=== PATIENT | female | born 1990 | race Caucasian/White ===

== ENCOUNTER 2016-07-18 15:38 | Inpatient (IN) ==
[2016-07-18] MEDS ORDERED: DINOPROSTONE VAG GEL 10 MG SYRINGE VAG ONE ×2 (16:05→16:13)
[2016-07-18] MEDS ORDERED: ONDANSETRON 4 MG/2 ML VIAL IV PRN (16:08)
[2016-07-18] MEDS: LACTATED RINGERS 1,000 ML IV SCH ×2 (16:40→23:11)
[2016-07-18 16:44] LABS: Basophils % 0.1 % (0.0-0.8); Eosinophils % 0.1 % (0.00-10.9); Hematocrit 38.2 VOL% (35.7-47.0); Immature Granulocytes % 0.3 %; Immature Granulocytes Absolute 0.03 #; Lymphocytes # 1.8 10*3/uL (1.4-4.0); Lymphocytes % 19.8 % (21.3-54.2); Mean Corpuscular Hemoglobin 29 PG (27-34); Mean Corpuscular Volume 86.2 FL (87-102); Monocytes # 0.5 10*3/uL (0.11-0.8); Neutrophils # 6.5 10*3/uL (1.4-7.4); Neutrophils % 73.7 % (38.7-73.9); Platelet Count 123 T/CUMM (130-400); Red Blood Count 4.43 MC/CUMM (3.8-5.5); Red Cell Distribution Width 13.4 % (9.3-17.3); White Blood Count 8.9 T/CUMM (4-12)
[2016-07-18 17:10] LABS: Albumin 2.9 G/DL (3.4-5.0); Bilirubin,Total 0.4 MG/DL (0.2-1.0); Calcium 8.3 MG/DL (8.5-10.1); Osmolality,Calculated 275.4 MOS/KG (273-304); Potassium 4.3 MMOL/L (3.5-5.1); Total Protein 6.2 G/DL (6.4-8.3)
--- NOTE | 2016-07-18 17:58 | OB/GYN History & Physical ---
History of Present Illness Chief complaint: In for elective induction of labor. History of present illness: Ms. Figueroa is a 26 year old female Home Medications Medication Instructions Recorded Confirmed Type Vits #90/Iron Fum/FA 1 each PO DAILY 07/18/16 07/18/16 History [ Formula Tablet] Allergies Allergy/AdvReac Type Severity Reaction Status Date / Time No Known Allergies Allergy Verified 07/18/16 16:06 12 point system: reviewed and no additional remarkable complaints except as stated Medical,Surgical,& Family Hx - Medical History Medical History: noncontributory Psychological: History of: Anxiety Disorders, Depression Reproductive: History of: Abnormal Pap Smear (LEEP) No history of: Ectopic , Complication - Surgical History Thoracic Surgeries: Patient denies;: Organ Transplant Abdominal Surgeries: Surgical HX of: Appendectomy Patient denies: Abdominal Surgery Reproductive Surgeries: Patient denies;: Section - Social History Smoking Status: Former smoker Frequency of Alcohol Use: None Type of Drug Use: None Marital Status: Single Lives With:: Significant Other Functional capacity: independent ambulation 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 General appearance: no acute distress - Antepartum / Post Antepartum Exam Cervix - Dilatation: 1 CM Effacement: 50% Station: -2 Rupture: INTACT Presentation: VTX Heart Rate: 140S Breast: bilateral: normal Abdomen obstetrics: Present: bowel sounds normal Vulva: bilateral: normal Vagina: Present: normal moisture Uterus exam: Present: enlarged Anus/Rectum: Present: normal perianal skin - Respiratory Respiratory exam: Present: clear to auscultation bilaterally - Cardiovascular Cardiovascular exam: Present: regular rate and rhythm - GI/Abdominal GI/Abdominal exam: Present: normal bowel sounds, soft - Extremities Exam Extremities exam: Present: normal inspection - Neurological Exam Neurological exam: Present: alert, oriented X3 - Psychiatric Psychiatric exam: Present: normal affect, normal mood - Skin Skin exam: Present: normal color, warm Assessment and Plan (1) Term Status: Acute Assessment and plan: Admit IV fluids Prostin gel per protocol IV Pitocin per protocol if indicated Artificial rupture membranes when appropriate Epidural anesthesia if desired Internal monitors if indicated Anticipate Current Visit: Yes Results - Labs CBC & BMP: 07/18/16 16:35 07/18/16 16:35 Quality Measures - VTE Contraindication to Pharmacological VTE Prophylaxis: Continuous Epidural Infusion
[2016-07-18] MEDS ORDERED: CITRIC ACID/SODIUM CITRATE 30 ML UDCUP PO ONE (18:54)
[2016-07-18] MEDS ORDERED: PROMETHAZINE 25 MG/1 ML VIAL IM ONE (18:54)
[2016-07-18] MEDS ORDERED: LACTATED RINGERS 1,000 ML IV ONE (18:54)
[2016-07-18] MEDS ORDERED: ePHEDrine 50 MG/ML AMP IV PRN ×2 (18:54)
[2016-07-18] MEDS ORDERED: hydrOXYzine HCL 25 MG/1 ML VIAL IM PRN (18:54)
[2016-07-18] MEDS ORDERED: FAMOTIDINE 20 MG/2 ML VIAL IV ONE (18:54)
[2016-07-18] MEDS ORDERED: diphenhydrAMINE 50 MG/1 ML VIAL IV PRN ×2 (18:54)
[2016-07-18] MEDS ORDERED: fentaNYL 2 MCG/ROPIV 0.2% EPID 150 ML EPIDURAL SCH (18:54)
[2016-07-18 21:00] LABS: Apearance,Urine CLEAR (Clear); Bilirubin,Urine Negative (Negative); Blood, Urine Negative (Negative); Glucose,Urine (UA) Negative (Negative); Ketones,Urine 20 mg/dL (Negative); Mucus,Urine Occasional /LPF (Occasional); Nitrite,Urine Negative (Negative); Protein,Urine Negative; RBC,Urine <1 /HPF (0-4); Squamous Epithelial Cell,Urine Occasional /HPF (0-10); Urine Color Yellow (Yellow); Urine Specific Gravity 1.012 (1.001-1.035); Urine Urobilinogen < 2.0 EU/DL (0.2-1.0); WBC,Urine 1 /HPF (0-6)
[2016-07-19] MEDS ORDERED: OXYTOCIN/LR 20 UNIT/1,000 ML BAG IV ONE ×2 (01:57→12:03)
[2016-07-19] MEDS ORDERED: OXYTOCIN/LR 20 UNIT/1,000 ML BAG IV SCH (02:00)
[2016-07-19] MEDS: LACTATED RINGERS 1,000 ML IV SCH (06:49)
[2016-07-19] MEDS ORDERED: LIDOCAINE 1% 50 ML VIAL ONE (08:46)
[2016-07-19] MEDS ORDERED: miSOPROStol 200 MCG TABLET ONE (08:46)
[2016-07-19 09:47] LABS: Cord Venous Blood HCO3 21.3 MMOL/L; Cord Venous Blood PCO2 46.3 MMHG
--- NOTE | 2016-07-19 10:02 | Event Note ---
HPI: Ms. Figueroa presented to the labor department for elective induction of labor due to term . The risk and benefits were thoroughly discussed with this patient and significant other, plan of care was discussed with Dr. Brambila and all parties were in agreement with plan. Stage I: The patient was admitted and received Prostin gel per protocol. She progressed in labor throughout the night with a CAT 1 tracing. She was started on IV Pitocin per protocol in the morning of 07/19/2016. She experienced spontaneous rupture membranes with clear fluid noted. The patient had an uneventful course of labor. She did receive an epidural for pain control. Stage II: The patient was complete and complained of pressure and desire to push. She pushed for approximately 10 minutes after which time the 's head was delivered. A nuchal cord 2 was noted and reduced. The mouth and nose were suctioned on the perineum. The remainder the infant was delivered at 859. A viable male infant was noted. Apgars were 9 at 1 minute and 9 at 5 minutes. weight was 7 pounds and 4 ounces. A cord pH was obtained and sent to the lab. The infant was placed on the mom's abdomen for skin to skin bonding. Stage III: Spontaneous delivery of a Solis placenta with a three-vessel cord noted. Placenta was further examined appeared to be grossly intact. Vagina cervix was inspected with a second-degree midline laceration noted. The laceration was repaired in the usual fashion. Epidural anesthesia remain in effect during repair. Estimated blood loss was approximately 150 cc. At the time of dictation mother and baby are both in stable condition
--- NOTE | 2016-07-19 11:55 | Anesthesia Post-Op ---
Anesthesia Post OP - Post Ansesthetic Evaluation Patient seen in post op: Yes Resp: within normal limits CV: within normal limits Mental: within normal limits Temp: within normal limits [id number]: within normal limits Nausea and Vomiting: within normal limits Pain: within normal limits
[2016-07-19] MEDS: IBUPROFEN 800 MG TABLET PO PRN ×2 (12:25→23:45)
[2016-07-19] MEDS ORDERED: BENZOCAINE 20%/MENTHOL 0.5% SPRAY 56 GM CAN TOP PRN (20:00)
[2016-07-20] MEDS ORDERED: MAGNESIUM HYDROXIDE SUSP 30 ML UDCUP PO PRN (04:05)
[2016-07-20 06:57] LABS: Basophils % 0.1 % (0.0-0.8); Eosinophils % 0.4 % (0.00-10.9); Hematocrit 36.6 VOL% (35.7-47.0); Hemoglobin 12.7 GM/DL (12.0-16.0); Immature Granulocytes % 0.6 %; Immature Granulocytes Absolute 0.06 #; Lymphocytes # 2.3 10*3/uL (1.4-4.0); Mean Corpuscular HGB Conc 34.7 GM/DL (32-36); Mean Corpuscular Hemoglobin 30 PG (27-34); Mean Corpuscular Volume 86.5 FL (87-102); Mean Platelet Volume 10.9 FL (9.6-12.0); Monocytes # 0.6 10*3/uL (0.11-0.8); Monocytes % 5.3 % (1.7-12.7); Neutrophils # 7.8 10*3/uL (1.4-7.4); Neutrophils % 72.6 % (38.7-73.9); Platelet Count 109 T/CUMM (130-400); Red Blood Count 4.23 MC/CUMM (3.8-5.5); Red Cell Distribution Width 13.5 % (9.3-17.3); White Blood Count 10.7 T/CUMM (4-12)
[2016-07-20] MEDS: IBUPROFEN 800 MG TABLET PO PRN ×2 (07:40→15:40)
[2016-07-20] MEDS: DOCUSATE SODIUM 100 MG CAPSULE PO SCH ×2 (09:06→21:09)
--- NOTE | 2016-07-20 10:14 | OB/GYN Progress Note ---
Assessment and Plan (1) Term Status: Acute Assessment and plan: Admit IV fluids Prostin gel per protocol IV Pitocin per protocol if indicated Artificial rupture membranes when appropriate Epidural anesthesia if desired Internal monitors if indicated Anticipate Current Visit: Yes (2) Vaginal delivery Status: Acute Assessment and plan: Initiate routine orders. Current Visit: Yes [employer] - PN: Subj Interval history: Stable with no complaints. Bonding well with infant Exam [employer] - Constitutional Vitals: Vital Signs Temp Pulse Resp BP Pulse Ox 07/20/16 08:00 97.7 F 72 18 129/85 07/20/16 05:59 16 07/20/16 04:00 97 F L 69 16 97/58 100 07/20/16 02:00 17 07/20/16 00:00 97.4 F L 50 L 18 112/48 100 07/19/16 20:00 97.8 F 75 18 141/72 100 07/19/16 18:00 20 07/19/16 15:55 97.4 F L 70 18 122/68 98 07/19/16 15:54 20 07/19/16 14:30 97.8 F 66 18 129/70 97 07/19/16 14:00 20 07/19/16 13:30 74 18 115/68 99 07/19/16 12:30 77 18 125/81 99 07/19/16 12:00 68 18 105/73 99 07/19/16 11:30 97.1 F L 74 18 129/87 99 General appearance: no acute distress - Antepartum / Post Post Exam Breast: bilateral: normal Abdomen obstetrics: Present: bowel sounds normal Vagina: Present: normal moisture, discharge (Light lochia room) Uterus exam: Present: enlarged (Fundus firm and midline) Anus/Rectum: Present: normal perianal skin - Respiratory Respiratory exam: Present: clear to auscultation bilaterally - Cardiovascular Cardiovascular exam: Present: regular rate and rhythm - GI/Abdominal GI/Abdominal exam: Present: normal bowel sounds, soft - Extremities Exam Extremities exam: Present: normal inspection - Neurological Exam Neurological exam: Present: alert, oriented X3 - Psychiatric Psychiatric exam: Present: normal affect, normal mood - Skin Skin exam: Present: normal color, warm Results - Labs CBC & BMP: 07/20/16 06:52 07/18/16 16:35
[2016-07-20] MEDS ORDERED: oxyCODONE/ACETAMINOPHEN 5-325 MG TABLET PO PRN ×2 (17:09→17:10)
[2016-07-20] MEDS ORDERED: IBUPROFEN 800 MG TABLET PO PRN (17:13)
[2016-07-21] MEDS: DOCUSATE SODIUM 100 MG CAPSULE PO SCH (09:00)
[2016-07-21 09:36] VITALS: BP 115/70
--- NOTE | 2016-09-24 08:20 | Discharge Summary ---
DATE OF ADMISSION: 07/18/2016 DATE OF DISCHARGE: 07/21/2016 The patient was admitted on 07/18/16 for an induction of labor. She had a normal induction of labor, delivered a male 7 pounds and 4 ounces. Apgars were 9 at 1 minute 9 at 5 minutes. Mother and were stable during the delivery process. She was stayed in the hospital for two days. Unremarkable course. Postoperative instructions were given. She was in full agreement, was discharged and will follow up in my office in approximately 6 weeks. JAVED
== END 2016-07-21 13:15 | disposition home or self-care (01) | DRG 775 ==
LOC: N.LDOUT 15:38 → N.LD 15:43 → N.OB 07-19 11:19
PROVIDERS: ADMIT Obstetrics & Gynecology; ATTEND Obstetrics & Gynecology